=== PATIENT | male | born 1980 | race Caucasian/White ===

== ENCOUNTER 2018-12-22 15:32 | Observation (INO) | payer BC, OTHER ==
[2018-12-22] MEDS ORDERED: Sodium Chloride 0.9% 1,000 ML IV ONE (15:34)
[2018-12-22] MEDS ORDERED: Diphtheria,Pertussis(Acell),Tetanus Vaccine 0.5 ML Syringe IM ONE (15:34)
[2018-12-22] MEDS ORDERED: Bacitracin Oint 1 GM U/D Packet TOP ONE (15:34)
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
[2018-12-22] MEDS ORDERED: Morphine 4 MG/ML Syringe IVPUSH ONE (15:39)
[2018-12-22] MEDS ORDERED: Ondansetron 4 MG/2 ML SDV IVPUSH ONE (15:41)
[2018-12-22] MEDS ORDERED: Morphine 2 MG/ML Syringe IVPUSH ONE (16:20)
[2018-12-22 16:30] LABS: BLOOD UREA NITROGEN,BUN 12 mg/dL (7.0-18.0); CARBON DIOXIDE,CO2 25.7 mmol/L (21.0-32.0); CHLORIDE,CL 102 mmol/L (98-107); GLUCOSE RANDOM 136 mg/dL (74-106); POTASSIUM,K 3.4 mmol/L (3.5-5.1); SODIUM,NA 144 mmol/L (136-148)
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
[2018-12-22] MEDS: Acetaminophen/HYDROcodone 325-5 MG Tab PO PRN (17:54)
[2018-12-22] MEDS: Lactated Ringers 1,000 ML IV SCH (17:58)
[2018-12-22] MEDS: Bacitracin Oint 28.35 GM Tube TOP SCH (21:37)
[2018-12-23] MEDS: Lactated Ringers 1,000 ML IV SCH (06:16)
[2018-12-23] MEDS: Bacitracin Oint 28.35 GM Tube TOP SCH (06:18)
[2018-12-23] MEDS: Acetaminophen/HYDROcodone 325-5 MG Tab PO PRN (07:27)
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
== END 2018-12-23 11:30 | disposition home or self-care (01) ==
LOC: MW.ED 15:32 → MW.MS 16:36
PROVIDERS: ADMIT Surgery; ATTEND Surgery
DX: T20.112A Burn of first degree of left ear [any part, except ear drum], initial encounter (principal); T20.111A Burn of first degree of right ear [any part, except ear drum], initial encounter; T20.19XA Burn of first degree of multiple sites of head, face, and neck, initial encounter; W86.8XXA Exposure to other electric current, initial encounter; Z88.0 Allergy status to penicillin
CPT/HCPCS: 36415; 71045; 71045-26; 80053; 85025; 90471; 90715; 93005; 96361; 96374; 96375; 99285-25; A9270-GY; G0378; J2270; J2405; J7040; J7120